=== PATIENT | female | born 1960 | race African-American/Black ===

== ENCOUNTER 2016-08-30 18:48 | Emergency (ER) | payer MEDICARE, MEDICAID ==
[~2016-08-30] VITALS: Ht 162.6 cm; Wt 81.6 kg
[~2016-08-30 18:48] MED LIST: AMLO5TAB4 PO; LOSA100T3 PO; [UNRECOGNIZED DRUG - CODE] PO; [UNRECOGNIZED DRUG - OTHER]
[2016-08-30] MEDS ORDERED: ALBUTEROL FS 2.5 MG/3 ML VIAL.NEB ONE (19:07)
[2016-08-30] MEDS ORDERED: IPRATROPIUM NEB FS 0.5 MG/2.5 ML AMPUL.NEB ONE (19:07)
[2016-08-30] MEDS ORDERED: ACETAMINOPHEN ES 500 MG TABLET ONE (19:16)
[2016-08-30] MEDS ORDERED: IBUPROFEN 600 MG TABLET PO ONE ×2 (19:16→19:30)
[2016-08-30] MEDS ORDERED: IPRATROPIUM NEB FS 0.5 MG/2.5 ML AMPUL.NEB NEB ONE (19:30)
[2016-08-30] MEDS ORDERED: ALBUTEROL FS 2.5 MG/3 ML VIAL.NEB CONTNEB ONE (19:30)
[2016-08-30] MEDS ORDERED: ACETAMINOPHEN ES 500 MG TABLET PO ONE (19:30)
[2016-08-30 20:26] VITALS: BP 132/84
== END 2016-08-30 20:27 | disposition home or self-care (01) ==
LOC: ER 18:49
DX: J40 Bronchitis, not specified as acute or chronic (principal); F32.9 Major depressive disorder, single episode, unspecified; I10 Essential (primary) hypertension; N83.209 Unspecified ovarian cyst, unspecified side; Z88.2 Allergy status to sulfonamides; Z88.6 Allergy status to analgesic agent
CPT/HCPCS: 71010; 93005; 94640; 99284; A4606; Z7610

== ENCOUNTER 2017-04-27 09:34 | Emergency (ER) | payer MEDICARE, OTHER ==
[~2017-04-27] VITALS: Ht 165.1 cm; Wt 83.9 kg
--- NOTE | 2017-04-27 09:42 | NUR ---
PATIENT TO ED DT BODYACHE,SORETHROAT, COUGH AND CONGESTION X 3 DAYS. PATIENT IS AFEBRILE AT THIS TIME,. SATING WELL ON ROOM AIR, APPEARS IN NO APPARENT DISTRESS, VSS,. PENDING MD KOENIG
--- NOTE | 2017-04-27 09:48 | NUR ---
MD SCHMITZ AT BEDSIDE
--- NOTE | 2017-04-27 09:53 | NUR ---
Sore throat, body aches, cough, and congestion since yesterday. Seen by MD. BANDA. Safety and comfort measures provided. Will monitor.
[2017-04-27 10:28] VITALS: BP 148/90
--- NOTE | 2017-04-27 10:28 | NUR ---
Patient discharged to home in stable condition. Written and verbal after care instructions given. Patient verbalizes understanding of instruction.
== END 2017-04-27 10:29 | disposition home or self-care (01) ==
LOC: ER 09:36
DX: B34.9 Viral infection, unspecified (principal); F32.9 Major depressive disorder, single episode, unspecified; G89.29 Other chronic pain; I10 Essential (primary) hypertension; F41.9 Anxiety disorder, unspecified; N83.209 Unspecified ovarian cyst, unspecified side; Z88.2 Allergy status to sulfonamides; Z88.6 Allergy status to analgesic agent; Z98.890 Other specified postprocedural states
CPT/HCPCS: 71010; 99283; A4606; Z7610